=== PATIENT | female | born 2000 ===

== ENCOUNTER 2023-11-21 13:27 | Emergency (ER) | payer MEDICAID, SELFPAY ==
--- NOTE | ~2023-11-21 | US_ITS ---
EXAMINATION: US , LIMITED CLINICAL INFORMATION: Trauma. 31 weeks . COMPARISON: None available. TECHNIQUE: Transabdominal Limited third trimester OB ultrasound FINDINGS: Single viable intrauterine fetus in cephalic position. heart rate 163 bpm. Normal amniotic fluid volume. Amniotic fluid index measures 18 cm. There is an anterior placenta with grade 2 changes. The maternal ovaries are normal. There is no fluid in the maternal pelvis. US/US OB limited IMPRESSION: Single viable intrauterine in cephalic position. Anterior placenta with grade 2 changes.
[2023-11-21 13:40] VITALS: BP 90/60; PULSE 84; O2SAT 100
[2023-11-21 13:45] VITALS: BP 107/70; PULSE 85; RESP 18; TEMP 36.7; O2SAT 97; BMI 26.8
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
[2023-11-21 14:25] LABS: MANUAL DIFF FLAG NO
[2023-11-21 14:26] LABS: Basophils Percent Auto 0.5 % (0-2); Eosinophils Absolute Auto 0.1 X10*3/uL (0.0-0.4); Eosinophils Percent Auto 0.9 % (0-4); Hematocrit 33.8 % (37.0-47.0); Hemoglobin 11.3 g/dl (12.0-16.0); Imm Gran Abs Auto 0.02 X10*3/uL (0.00-0.03); Imm Gran Pct Auto 0.2 % (0.0-0.4); Lymphocytes Absolute Auto 1.4 X10*3/uL (1.2-4.9); Lymphocytes Percent Auto 16.3 % (20-40); Mean Corpuscular HGB Conc 33.4 g/dl (31.0-35.0); Mean Corpuscular Hemoglobin 30.5 pg (27.0-33.0); Mean Corpuscular Volume 91.4 fL (80.0-98.0); Mean Platelet Volume 10.8 fL (9.4-12.3); Monocytes Absolute Auto 0.6 X10*3/uL (0.1-1.2); Monocytes Percent Auto 7.2 % (2-11); Neutrophils Absolute Auto 6.6 x10*3/uL (2.0-8.3); Neutrophils Percent Auto 74.9 % (45-73); Platelet Count 186 X10*3/uL (160-400); Red Cell Distribution Width 13.1 % (11.0-16.0); White Blood Count 8.8 X10*3/uL (4.8-10.8)
[2023-11-21 14:33] LABS: Appearance Urine Clear; Color Urine Yellow; Glucose Urine UA Negative (Negative); Leukocyte Esterase Urine Trace (Negative); Nitrite Urine Negative (Negative); Specific Gravity - Urine <= 1.005 (1.005-1.025); UMIC TRIGGER UACC YES; Urine Blood Negative (Negative); Urine Ketones Negative (Negative); Urine Protein Negative (Neg-Trace)
--- NOTE | 2023-11-21 14:37 | PC.NURSE ---
US at bedside
[2023-11-21 14:38] LABS: Bacteria Urine None Seen (None Seen); Hyaline Casts Urine 0-2 /LPF (0-2); RBC Urine 0-2 /HPF (0-2); WBC Urine 0-5 /HPF (0-5)
[2023-11-21 14:41] LABS: INTERNATIONAL NORM RATIO 0.9 (0.9-1.1); Prothrombin Time 10.4 SEC (11.1-13.3)
[2023-11-21 14:45] LABS: Alanine Aminotransferase 12 U/L (0-31); Albumin Level 3.4 g/dL (3.5-5.0); Alkaline Phosphatase 93 U/L (39-117); Anion Gap 10 (12-20); Aspartate Amino Transferase 18 U/L (5-31); Bilirubin Direct 0.2 mg/dL (0.0-0.5); Bilirubin Total 0.6 mg/dL (0.0-1.0); Blood Urea Nitrogen 5 mg/dL (9-16); Calcium 9.4 mg/dL (8.4-10.2); Carbon Dioxide 26 mmol/L (22-29); Chloride 109 mmol/L (96-108); Creatinine Clr Calc Pharmacy 125.5; Estimated Glomerular Filt Rate > 60; Glucose Random 76 mg/dL (60-115); Lipase 18 U/L (8-78); Potassium 3.9 mmol/L (3.3-5.1); Sodium 141 mmol/L (135-145); Total Protein 6.4 g/dL (6.5-8.0)
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
[2023-11-21 16:08] VITALS: BP 100/71; PULSE 94; RESP 14; O2SAT 96
[2023-11-21 16:23] VITALS: BP 100/71; PULSE 94; RESP 16; TEMP 36.7; O2SAT 96
--- NOTE | 2023-11-21 16:23 | PC.NURSE ---
Report given to AYLIN MARIE at [facility]
[2023-11-21 16:47] LABS: HCG Quantitative 24762 mIU/mL
== END 2023-11-21 16:25 | disposition short-term general hospital (02) ==
PROVIDERS: Physician Assistant; Emergency Provider Emergency Medicine
DX: O9A.213 Injury, poisoning and certain other consequences of external causes complicating pregnancy, third trimester (principal); S39.91XA Unspecified injury of abdomen, initial encounter; W01.0XXA Fall on same level from slipping, tripping and stumbling without subsequent striking against object, initial encounter; Z3A.31 31 weeks gestation of pregnancy; Y93.01 Activity, walking, marching and hiking; Y92.59 Other trade areas as the place of occurrence of the external cause; Y99.9 Unspecified external cause status
CPT/HCPCS: 36415; 76815; 80048; 80076; 81001; 83690; 84702; 85025; 85610; 99285